=== PATIENT | male | born 1995 | race Caucasian/White ===

== ENCOUNTER → 2016-10-24 | Outpatient (CLI) | payer OTHER, SELFPAY ==
--- NOTE | 2016-10-25 03:25 | REP ---
Clinical: Pain. Technique: AP, lateral views of the left elbow. Findings: No acute fracture or dislocation is appreciated. Joint spaces and surrounding soft tissues appear normal. Lateral view demonstrates normal positioning to the anterior and posterior fat pads without evidence for effusion/hemarthrosis. No subcutaneous emphysema or foreign body identified. Impression: Normal left elbow radiographs. Signed by Sundeep Spencer MD 10/25/2016 03:16 A
== END ==
LOC: M RAD 12:57
PROVIDERS: ATTEND Family Medicine Addiction Medicine
DX: M25.522 Pain in left elbow (principal)